=== PATIENT | male | born 1930 | race Caucasian/White ===

== ENCOUNTER 2016-06-15 16:49 | Emergency (ER) | payer OTHER ==
[2016-06-15 16:54] VITALS: BP 147/96; PULSE 109; RESP 18; TEMP 97.9; O2SAT 95
== END 2016-06-15 16:55 | disposition left against medical advice (07) ==
LOC: CED 16:49
DX: Z53.21 Procedure and treatment not carried out due to patient leaving prior to being seen by health care provider (principal)

== ENCOUNTER 2016-06-15 18:54 | Emergency (ER) | payer OTHER ==
[2016-06-15] MEDS ORDERED: SILVER NITRATE APPLICATOR 1 APPL TP ONE (19:41)
[2016-06-15] MEDS ORDERED: OXYMETAZOLINE 30 ML NASAL SPRAY ONE (19:41)
--- NOTE | 2016-06-15 20:27 | EDPHY ---
H & P Stated Complaint: epistaxis intermittent today/tx for sinus infection/on coumadin Source: Patient Exam Limitations: No limitations - Personal History Current Tetanus/Diphtheria Vaccine: Yes - Medical/Surgical History Hx Asthma: No Hx Chronic Respiratory Disease: No Hx Diabetes: No Hx Cardiac Disease: Yes Hx Renal Disease: No Hx Cirrhosis: No Hx Alcoholism: No Hx HIV/AIDS: No Hx Splenectomy or Spleen Trauma: No Other PMH: AFib, takes Warfrin. - Social History Smoking Status: Never smoked Time Seen by Provider: 06/15/16 19:23 HPI/ROS: CHIEF COMPLAINT: Epistaxis HISTORY OF PRESENT ILLNESS: 86-year-old male presents emergency department with an epistaxis out of his left near. Patient was lifting something heavy and bent over today when his nose started bleeding. This started 5 hours ago and has been intermittent. Patient denies headache, nausea or vomiting, no chest pain or shortness of breath. Patient takes Coumadin for atrial fibrillation. Patient finished Augmentin today for a sinus infection. He reports his sinus infection symptoms have resolved. REVIEW OF SYSTEMS: A comprehensive 10 point review of systems is otherwise negative aside from elements mentioned in the history of present illness. (Carmen Boss) - Physical Exam Exam: Physical Exam Gen: Alert and Oriented, NAD HEENT: PERRL, moist mucous membranes, dried blood and left nare. Anterior epistaxis location identified on septum. No continued bleeding NECK: no meningismus CV: regular rate and irregular rhythm PULM: CTAB, no wheezes ABDOMEN: soft, non tender to palpation, BS present BACK: No CVA tenderness NEURO: Neurologically grossly intact EXTREMITIES: normal appearing SKIN: no rash or break in skin on exposed skin PSYCH: answers questions appropriately. (Carmen Boss) Constitutional: Initial Vital Signs Temperature (C) 36.3 C 06/15/16 18:59 Heart Rate 94 06/15/16 18:59 Respiratory Rate 18 06/15/16 18:59 Blood Pressure 201/96 H 06/15/16 18:59 O2 Sat (%) 95 06/15/16 18:59 O2 Delivery Mode Room Air Allergies/Adverse Reactions: No Known Allergies Allergy (Unverified 06/15/16 18:58) Home Medications: Medication Instructions Recorded AMOXICILLIN 06/15/16 Coumadin 06/15/16 HYDROcodone BIT/HOMATROP ME-BR 06/15/16 Medical Decision Making ED Course/Re-evaluation: 86-year-old male presents with an epistaxis. Patient had a nasal clamp in place for 30 minutes prior to arrival. Clamp was removed, the patient blue nose and 1 spray of Afrin placed in bilateral nares. No return of epistaxis. Exam revealed location of epistaxis, anterior left septum, no current bleeding. Following the procedure, the patient was re-examined every 15 to 30 minutes until the patient was free from epistaxis for 1-hour post procedure. The patient tolerated the procedure well. INR is 2.04. (Carmen Boss) Other Provider: The patient was evaluated and managed by the Physician Photographer Assistant/ Nurse Practitioner. I discussed the patient's presentation and course with the midlevel provider with them and agree with the evaluation. My co-signature indicates that I have reviewed this chart and I agree with the findings and plan of care as documented. I am the secondary supervising physician. (Barbara Mckeon) - Data Points Laboratory Results: 06/15/16 19:58 PT 23.1 SEC H SEC (12.0-15.0) INR 2.03 H (0.83-1.16) Departure - Departure Disposition: Home, Routine, Self-Care Clinical Impression: Acute anterior epistaxis Condition: Good Instructions: Nosebleed (ED) Additional Instructions: Use 1 spray of Afrin in each nostril twice daily for 2 days. Sleep with a humidifier, do not blow or pick your nose. Use saline nasal spray twice daily. If your nose begins to bleed again, place nasal clamp for 20 minutes, then remove and if it continues to bleed place again for another 20 minutes. Remove clamp again and if it continues to bleed come to the emergency department. Follow up with the Ear Nose and Throat doctor for continued intermittent nosebleeds. Referrals: Wicho Rivas MD [Medical Doctor] - As per Instructions (ENT sewage reticulation drafting officer)
[2016-06-15 20:46] LABS: INR 2.03 (0.83-1.16); PROTIME(PATIENT) 23.1 SEC (12.0-15.0)
[2016-06-15 21:15] VITALS: RESP 16
[2016-06-15 21:17] VITALS: BP 148/95; PULSE 79; TEMP 97.9; O2SAT 96
== END 2016-06-15 21:18 | disposition home or self-care (01) ==
DX: R04.0 Epistaxis (principal); Z79.01 Long term (current) use of anticoagulants